=== PATIENT | male | born 1980 | race Caucasian/White ===

== ENCOUNTER 2017-03-08 18:42 | Emergency (ER) | payer BC ==
[~2017-03-08] VITALS: Ht 188 cm; Wt 115.9 kg
[2017-03-08 18:46] VITALS: TEMP 99
[2017-03-08 20:28] LABS: BASO # 0.1 (0.0-0.2); BASO % 0.7 % (0.0-2.0); EOS # 0.2 (0.0-0.7); EOS % 2.8 % (0-4.0); GRAN # 5.1 (1.4-6.5); HEMATOCRIT 43.6 % (42.0-52.0); HEMOGLOBIN 14.9 g/dl (13.5-18.0); LYMPH # 1.8 (1.2-3.4); LYMPH % 24.2 % (20.0-51.0); MEAN CELL VOLUME 90 fl (80.0-100.0); MEAN CORPUSCULAR HEMOGLOBIN 31 pg (27.0-31.0); MEAN CORPUSCULAR HGB CONC 34 g/dl (33.0-37.0); MONO # 0.4 (0.1-0.6); MONO % 4.9 % (1.7-9.3); PLATELET COUNT 260 K/mm3 (130-400); RED BLOOD COUNT 4.87 M/mm3 (4.20-5.60); REDCELL DISTRIBUTION WIDTH-CV 12.1 % (11.5-14.5); WHITE BLOOD COUNT 7.6 K/mm3 (4.8-10.8)
[2017-03-08 20:37] LABS: ADJUSTED CALCIUM 8.8 mg/dL (8.4-10.2); ALBUMIN 4.6 gm/dL (3.5-5.0); BILIRUBIN,TOTAL 0.7 mg/dL (0.0-1.0); CALCIUM 9.3 mg/dL (8.4-10.2); CREATININE, serum 0.74 mg/dL (0.66-1.25); POTASSIUM 3.3 mmol/L (3.4-5.0); TOTAL PROTEIN 7.8 gm/dL (6.4-8.2)
[2017-03-08] MEDS ORDERED: PRILOSEC 20MG20 MG PO (22:00)
[2017-03-08 22:05] VITALS: BP 103/65; PULSE 92
== END 2017-03-08 22:51 | disposition home or self-care (01) ==
LOC: COL.ER 18:42
PROVIDERS: Emergency Medicine
DX: T18.128A Food in esophagus causing other injury, initial encounter (principal); K21.0 Gastro-esophageal reflux disease with esophagitis; Z87.19 Personal history of other diseases of the digestive system; Z88.8 Allergy status to other drugs, medicaments and biological substances
CPT/HCPCS: J1610; J2250; J2765; J3010; J7030

== ENCOUNTER 2017-05-24 07:33 | Day surgery (SDC) | payer BC ==
[~2017-05-24] VITALS: Ht 188 cm; Wt 121.0 kg
[~2017-05-24 07:33] MED LIST: PRILOSEC 20MG20 MG PO
[2017-05-24 07:55] VITALS: BP 140/82; PULSE 61; TEMP 97.7
[2017-05-24 08:40] VITALS: BP 115/71; PULSE 72; TEMP 97.7
[2017-05-24 08:45] VITALS: BP 110/71; PULSE 64
[2017-05-24 09:00] VITALS: BP 108/70; PULSE 59
[2017-05-24 09:15] VITALS: BP 114/71; PULSE 58
== END 2017-05-24 09:50 | disposition home or self-care (01) ==
LOC: SDCO 07:33
DX: K21.0 Gastro-esophageal reflux disease with esophagitis (principal); K22.2 Esophageal obstruction; R13.10 Dysphagia, unspecified
CPT/HCPCS: OP; C1726; J2250; J3010; J7030

== ENCOUNTER 2018-06-28 10:57 | Emergency (ER) | payer BC ==
[~2018-06-28] VITALS: Ht 188 cm; Wt 118.2 kg
[2018-06-28 11:00] VITALS: BP 133/84; TEMP 97.4
[2018-06-28] MEDS ORDERED: PRILOSEC 20MG20 MG PO (11:08)
[2018-06-28] MEDS ORDERED: NORCO 325 MG-7.1 TAB PO (12:57)
[2018-06-28] MEDS ORDERED: LIDODERM 5% PATC1 EA TP (12:57)
[2018-06-28 13:17] VITALS: PULSE 68
== END 2018-06-28 13:21 | disposition home or self-care (01) ==
LOC: COL.ER 10:57
DX: M54.5 Low back pain (principal)
CPT/HCPCS: J2270; J2550